=== PATIENT | female | born 2000 | race Asian ===

== ENCOUNTER → 2025-01-01 11:38 | Outpatient (REF) | payer OTHER, SELFPAY ==
[2025-01-02 19:42] LABS: Hepatitis B Surface Antibody Positive
[2025-01-03 08:15] LABS: Quantiferon Mitogen minus NIL 9.99 IU/mL; Quantiferon NIL 0.01 IU/mL; Quantiferon Plus TB1 minus NIL 0.01 IU/mL (<=0.34); Quantiferon TB Gold Plus Negative (Negative)
== END ==
LOC: OHS 11:38
PROVIDERS: ATTENDING PHYSICIAN Nurse Practitioner Family
DX: Z23 Encounter for immunization (principal)
CPT/HCPCS: 36415; 86480; 86706